=== PATIENT | female | born 1940 | race Caucasian/White ===

== ENCOUNTER → 2018-02-08 | Outpatient (CLI) | payer MEDICARE | END | disposition home or self-care (01) | LOC: PCVCCLINIC 14:17 | DX: I10 Essential (primary) hypertension (principal); R01.1 Cardiac murmur, unspecified; K21.9 Gastro-esophageal reflux disease without esophagitis | CPT/HCPCS: 93005; G0463 ==

== ENCOUNTER → 2018-02-15 | Outpatient (CLI) | payer MEDICARE | END | disposition home or self-care (01) | LOC: PCVCIMAG 14:58 | DX: I08.3 Combined rheumatic disorders of mitral, aortic and tricuspid valves (principal); R00.1 Bradycardia, unspecified; I10 Essential (primary) hypertension | CPT/HCPCS: 93306 ==

== ENCOUNTER → 2018-09-04 | Outpatient (CLI) | payer MEDICARE | END | disposition home or self-care (01) | LOC: PCVCCLINIC 10:55 | PROVIDERS: ATTEND Internal Medicine | DX: I38 Endocarditis, valve unspecified (principal); I10 Essential (primary) hypertension; E78.5 Hyperlipidemia, unspecified; K21.9 Gastro-esophageal reflux disease without esophagitis; F32.9 Major depressive disorder, single episode, unspecified | CPT/HCPCS: 93005; G0463 ==

== ENCOUNTER → 2019-09-13 | Outpatient (CLI) | payer MEDICARE ==
--- NOTE | 2019-09-14 16:00 | PCVCIMAG ---
APPROVED REPORT Study performed: 09/13/2019 14:09:54 EXAM: Comprehensive 2D, Doppler, and color-flow Echocardiogram Patient Location: Echo lab Room #: 3Status: routine BSA: 1.59 Rhythm: NSR Other Information Study Quality: Good Risk Factors: Cardiac Risk Factors: HTN, Hyperlipidemia Indications Murmur Hypertension/HDD 2D Dimensions IVSd: 10.80 (7-11mm)LVOT Diam: 19.00 (18-24mm) LVDd: 41.44 mm PWd: 10.22 (7-11mm)Ascending Ao: 28.21 (22-36mm) LVDs: 27.96 (25-40mm) Left Atrium: 31.45 (27-40mm) Aortic Root: 28.59 mm LV Single Plane 4CH: 58.46 % LV Single Plane 2CH: 57.86 % Biplane EF: 60.1 % Volumes Left Atrial Volume (Systole) Single Plane 4CH: 41.47 mLSingle Plane 2CH: 46.53 mL LA ESV Index: 28.00 mL/m2 Aortic Valve AoV Peak Yusuf.: 1.88 m/s AO Peak Gr.: 14.13 mmHgLVOT Max P.58 mmHg LVOT Max V: 0.93 m/s EBONY Vmax: 1.43 cm2 AI Vmax: 4.06 m/s AI [place]: 1.91 m/s2 AI PHT: 615.80 ms Mitral Valve E/A Ratio: 0.7 MV Decel. Time: 287.69 ms MV E Max Yusuf.: 1.03 m/s MV A Yusuf.: 1.47 m/s IVRT: 51.90 ms TDI E/Lateral E': 20.60E/Medial E': 20.60 Medial E' Yusuf.: 0.05 m/s Lateral E' Yusuf.: 0.05 m/s Pulmonary Valve PV Peak Yusuf.: 0.95 m/sPV Peak Gr.: 3.61 mmHg Pulmonary Vein P Vein S: 0.63 m/sP Vein A: 0.27 m/s P Vein D: 0.31 m/sP Vein A Dur.: 83.0 msec P Vein S/D Ratio: 2.03 Tricuspid Valve TR Peak Yusuf.: 2.77 m/sRAP Estimate: 7.00 mmHg TR Peak Gr.: 30.77 mmHg PA Pressure: 38.00 mmHg Left Ventricle The left ventricle is normal size. There is normal LV segmental wall motion. There is normal left ventricular wall thickness. Left ventricular systolic function is normal. The left ventricular ejection fraction is within the normal range. LVEF is 60%. Mild diastolic dysfunction is present (impaired relaxation pattern). Right Ventricle The right ventricle is normal size. The right ventricular systolic function is normal. Atria The left atrium size is normal. The right atrium size is normal. Aortic Valve Aortic valve leaflets are mildly thickened. Mild aortic regurgitation. There is no aortic valvular stenosis. Mitral Valve There is moderate mitral annular calcification. Mild to moderate mitral regurgitation. No evidence of mitral valve stenosis. Tricuspid Valve The tricuspid valve is normal in structure. Mild to moderate tricuspid regurgitation. Pulmonary artery pressure is 38 mmHg. Pulmonic Valve The pulmonary valve is normal in structure. There is no pulmonic valvular regurgitation. Great Vessels The aortic root is normal in size. The ascending aorta is normal in size. IVC is normal in size and collapses >50% with inspiration. Pericardium There is no pericardial effusion. <Conclusion> The left ventricle is normal size. LVEF is 60%. Aortic valve leaflets are mildly thickened. Mild aortic regurgitation. There is moderate mitral annular calcification. Mild to moderate mitral regurgitation. The tricuspid valve is normal in structure. Mild to moderate tricuspid regurgitation. Pulmonary artery pressure is 38 mmHg. The pulmonary valve is normal in structure. There is no pericardial effusion.
== END | disposition home or self-care (01) ==
LOC: PCVCIMAG 14:01
PROVIDERS: ATTEND Internal Medicine
DX: I08.3 Combined rheumatic disorders of mitral, aortic and tricuspid valves (principal); I10 Essential (primary) hypertension; E78.5 Hyperlipidemia, unspecified; Z88.8 Allergy status to other drugs, medicaments and biological substances
CPT/HCPCS: 93306